=== PATIENT | female | born 1955 | race African-American/Black ===

== ENCOUNTER 2024-11-29 20:26 | Inpatient (IN) | payer OTHER, SELFPAY ==
[2024-11-29 22:43] VITALS: BMI 37.9
[2024-11-30 02:03] VITALS: BP 122/69; PULSE 87; RESP 18; TEMP 36.3; O2SAT 99
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
[2024-11-30 08:00] VITALS: BP 132/62; PULSE 94; RESP 16; O2SAT 98
[2024-11-30 08:41] LABS: Neut%MD 78.1 %; Neutrophils Absolute Auto 10.4 x10*3/uL (2.0-8.3); WBCANC 13.3 X10*3/uL
--- NOTE | 2024-11-30 08:45 | HO.PS.ADMBH ---
HPI Chief Complaint: schizophrenia Diagnostics Vital Signs (24Hr): Vital Signs - 24 hr 11/30/24 02:03 Temperature 97.3 F Pulse Rate 87 Respiratory Rate 18 Blood Pressure 122/69 Pulse Oximetry 99 Oxygen Delivery Method Room Air BMI result Body Mass Index 37.9 Labs 11/30/24 08:36 Labs: Laboratory Results - last 48 hr 11/30/24 08:36 Absolute Neuts (auto) 10.4 H Meds/Allergies Meds Home Medications ?Medication ?Instructions ?Recorded ?Confirmed ?Type aspirin 81 mg tablet,delayed 81 mg PO DAILY 11/29/24 11/29/24 History release atorvastatin 40 mg tablet 40 mg PO DAILY 11/29/24 11/29/24 History clozapine 100 mg tablet 200 mg PO BEDTIME 11/29/24 11/29/24 History divalproex 500 mg tablet,delayed 500 mg PO BEDTIME 11/29/24 11/29/24 History release fluticasone 250 mcg-salmeterol 50 1 ea inhalation BID 11/29/24 11/29/24 History mcg/dose blistr powdr for inhalation (Kecia Inhbrennan) fluticasone propionate 50 50 spray intranasal BID 11/29/24 11/29/24 History mcg/actuation nasal spray,suspension loratadine 10 mg tablet 10 mg PO DAILY 11/29/24 11/29/24 History metformin 1,000 mg tablet 1,000 mg PO BID 11/29/24 11/29/24 History risperidone 2 mg tablet 2 mg PO BID 11/29/24 11/29/24 History topiramate 100 mg tablet 100 mg PO BID 11/29/24 11/29/24 History Allergies Allergies Allergy/AdvReac Type Severity Reaction Status Date / Time grass pollen AdvReac Runny Nose Verified 11/29/24 23:13 lactose AdvReac Diarrhea Uncoded 11/29/24 22:26 Assessment & Plan Certification I certify that partial hospital treatment is medically necessary due to the symptoms and problems resulting from the patient's mental illness and the failure to treat the patient at the partial hospital level of care would likely result in the patient requiring inpatient psychiatric care which could not be prevented at a less intensive level of care. Time Spent With Patient Time: Total time managing care of this patient today ____ minutes.
--- NOTE | 2024-11-30 08:46 | P.HPPS_ITS ---
HPI Date of Service: 11/30/24 Chief Complaint: schizophrenia Sources of Information: patient interviewed, chart reviewed and crisis/core team assessment reviewed HPI Subjective Notes: Salazar Warning and Conditional Voluntary Narrative: Ms. Sanchez is a 69 year-old woman with hx of schizophrenia who initially called 911 reporting SOB. She was noted to be guarded and vague about physical concerns. Pt presented as combative, spitting at staff, refusing medical intervention. She presented tachycardiac. EKG showed normal sinus rhythm, Qtc 449.CBC with leukocytosis, metabolic acidosis. Covid/RSV/Flu negative. TSH 0.04, Free T4 2.16. BUN 20, Cr. 1.11, creatinine clearance 46. Unremarkable chest XR/CT abdomen. Negative d-dimer. She was found to be in starvation ketoacidosis. She reported she had stopped medications because she thought she was being poisoned by her psychiatrist. She had last filled her prescriptions, including clozaril back in 07/2024. She last saw her psychiatrist last 02/2024. Ms. Wilson was seen by psychiatrist while at [facility] and restarted on clozaril, currently back at 200mg po qhs. On the unit, pt reports she had been thinking that her psychiatrist at [facility] was trying to poisoned her and she stopped seeing her and taking medications. She reports she was hearing voices. She is somewhat guarded but appears improved condition. She denies SI/HI. She provides limited information about her psychiatric history including past psychiatric hospitalizations. She reports she feels better with the medication as she feels calmer and is now in agreement to continue medication. She denies any pain. She reports her sleep is good. She denies any changes in appetite. She asks this show card writer to contact her son to let him know she is here in the hospital. Past Psychiatric History: INpt: unknow. pt vague about this OP: was seeing Dr. Neal at [facility] but has not seen them. She does have ACCS services, [facility]. Past medication trials: clozaril, depakote Denies hx of suicide attempts Medical Evaluation Reviewed: Yes Diagnostics Vital Signs (24Hr): Vital Signs - 24 hr 11/30/24 02:03 Temperature 97.3 F Pulse Rate 87 Respiratory Rate 18 Blood Pressure 122/69 Pulse Oximetry 99 Oxygen Delivery Method Room Air BMI result Body Mass Index 37.9 Labs 06/10/25 08:36 Labs: Laboratory Results - last 48 hr 11/30/24 08:36 Absolute Neuts (auto) 10.4 H Meds/Allergies Meds Home Medications ?Medication ?Instructions ?Recorded ?Confirmed ?Type aspirin 81 mg tablet,delayed 81 mg PO DAILY 11/29/24 11/29/24 History release atorvastatin 40 mg tablet 40 mg PO DAILY 11/29/24 11/29/24 History clozapine 100 mg tablet 200 mg PO BEDTIME 11/29/24 11/29/24 History divalproex 500 mg tablet,delayed 500 mg PO BEDTIME 11/29/24 11/29/24 History release fluticasone 250 mcg-salmeterol 50 1 ea inhalation BID 11/29/24 11/29/24 History mcg/dose blistr powdr for inhalation (Wixela Inhub) fluticasone propionate 50 50 spray intranasal BID 11/29/24 11/29/24 History mcg/actuation nasal spray,suspension loratadine 10 mg tablet 10 mg PO DAILY 11/29/24 11/29/24 History metformin 1,000 mg tablet 1,000 mg PO BID 11/29/24 11/29/24 History risperidone 2 mg tablet 2 mg PO BID 11/29/24 11/29/24 History topiramate 100 mg tablet 100 mg PO BID 11/29/24 11/29/24 History Allergies Allergies Allergy/AdvReac Type Severity Reaction Status Date / Time grass pollen AdvReac Runny Nose Verified 11/29/24 23:13 lactose AdvReac Diarrhea Uncoded 11/29/24 22:26 Mental Status Exam Mental Status Exam Narrative: Appearance: MO, wearing hospital gown, fair hygiene, in NAD Behavior: cooperative, poor historian Psychomotor: some retardation noted Speech: clear, some delayed in response, spontaneous TP: some thought blocking TC: feeling better with medications Mood: good Affect: constricted SI: denies HI: denies VH/AH: appears internally preoccupied but less Delusions: no overt delusional content, suspect residual paranoid Insight/judgment: impaired x 2. Memory/cog: alert, oriented x 3. Assessment & Plan Assessment & Plan (1) Schizophrenia: Status: Acute Code(s): F20.9 - Schizophrenia, unspecified Plan Ms. Sanchez is a 69 year-old woman with hx of schizophrenia who initially went to [facility] after she called 911 reporting SOB. While at [facility], pt presented as guarded, paranoid, spitting at RN, refusing medical care. She presented with paranoid delusions thinking psychiatrist was trying to poison her. She was found to be in starvation ketoacidosis, thyroid nodule, low TSH, but normal free T4. She had stopped clozaril since July or longer than that. She was restarted on clozaril at [facility] and is back at 200mg po qhs. She is also on depakote. She presents less paranoid than described, she is in agreement to continue psychotropic medications. PLAN 1. Admit to , CV, 15 minutes checks 2. continue current medications 3. obtain collateral information- son Issac ([phone]) 4. Aftercare planning. Patient educated on: diagnosis and medication risk/benefits Reason for continued inpatient stay Substantial Risk for: inability to function Statement Statement: I have reviewed the history and physical and performed a pertinent examination on my patient. No changes have occurred unless specified. If the History and Physical was not performed prior to admission, the Hospitalist's service will be consulted for completing the admission physical. Time Spent With Patient Time: Total time managing care of this patient today ____ minutes.
[2024-11-30 08:50] LABS: Estimated Average Glucose 134 mg/dL; Hemoglobin A1C 133.2643 umol/L; Hemoglobin A1c % 6.3 % (<6.0)
[2024-11-30 09:03] LABS: Alanine Aminotransferase 7 U/L (0-31); Albumin Level 3.5 g/dL (3.5-5.0); Alkaline Phosphatase 63 U/L (39-117); Anion Gap 14 (12-20); Aspartate Amino Transferase 21 U/L (5-31); Bilirubin Total 0.2 mg/dL (0.0-1.0); Blood Urea Nitrogen 32 mg/dL (9-16); Calcium 9.3 mg/dL (8.4-10.2); Carbon Dioxide 21 mmol/L (22-29); Chloride 106 mmol/L (96-108); Cholesterol 145 mg/dL (<200); Creatinine Clr Calc Pharmacy 45.2; Estimated Glomerular Filt Rate 34; Glucose Random 202 mg/dL (60-115); HDL Cholesterol 27 mg/dL (>40); LDL Cholesterol Calculated 86 mg/dL (<100); Potassium 4.8 mmol/L (3.3-5.1); Sodium 136 mmol/L (135-145); Triglycerides 164 mg/dL (<150)
[2024-11-30] MEDS: Fluticasone/Vilanterol 200/25 BLST.W.DEV 1 PUFF INHALE (09:03)
[2024-11-30] MEDS: metFORMIN HCl 1,000 MG TABLET 1000 MG PO ×2 (09:04→21:16)
[2024-11-30] MEDS: Aspirin Enteric Coated 81 MG TABLET.DR PO (09:04)
[2024-11-30] MEDS: risperiDONE 2 MG TABLET PO ×2 (09:04→21:16)
[2024-11-30] MEDS: Fluticasone Propionate Nasal 16 GM SPRAY 50 SPRAY NOSTRIL-B ×2 (09:04→21:16)
[2024-11-30] MEDS: Topiramate 100 MG TABLET PO ×2 (09:04→21:16)
[2024-11-30] MEDS: Loratadine 10 MG TABLET PO (09:04)
[2024-11-30 09:18] LABS: Thyroid Stimulating Hormone 5.29 uIU/mL (0.32-4.0)
[2024-11-30 09:52] LABS: Folate 12.9 ng/mL (> or = 4.0); Vitamin B12 465 pg/mL (200-900)
--- NOTE | 2024-11-30 11:27 | HO.PM.IMCN ---
History of Present Illness Data of Consult Service Date: 11/30/24 Primary Care Provider: Unknown Physician HPI Reason for consult: Medical consult 69-year-old female with a past medical history of schizophrenia, hypertension hyperlipidemia and type 2 diabetes was brought by EMS after she activated her own medical alert for shortness of breath. On arrival to the ED it was discovered that she stopped taking her medications she was noted to have metabolic acidosis/hypo magnesemia/and starvation ketosis. There were concerns of her living in an unkempt home and failure to thrive. In the hospital she was seen by endocrinology with several scans outlined and plan. She was followed by Psychiatry who restarted her schizophrenia medication which was up titrated gradually. She had an elevated white count positive beta hydroxybutyrate, and anion gap metabolic acidosis and abnormal thyroid functions on presentation Her chest x-ray was negative her CT abdomen were nonacute, no growth in her blood cultures. She received fluid boluses due to orthostatic hypotension which is resolved, treated for candidal skin rash. She was started on metoprolol 12.5 mg daily but this will be changed to lisinopril due to her type 2 diabetes with stage 3B chronic kidney disease. She was also noted to have some adrenal nodules which will need outpatient follow-up. She was stabilized in sent here for further management of her decompensated schizophrenia. Review of Systems Review of Systems: Denies any shortness of breath, chest pain, dizziness, lightheadedness, abdominal pain or discomfort, nausea vomiting or diarrhea PMFSH Social History Household Members: None Housing: Apartment Do you presently have visiting nurse or other home services: Yes Patient Tobacco Use Status: Current everyday Tobacco user Tobacco use type: Cigarette Cigarettes Per Day: 7 Years Smoked: Since 16 yrs old Smoked in Last 30 Days: Yes e-Cigarette/Vaping Use: Never Used Patient Interested in Nicotine Replacement: No Patient Given Instructions on How to Stop Smoking: Yes Date Education Initiated: 11/29/24 Second Hand Smoke Exposure: No Currently Displaying Signs/Symptoms of Drug Intoxication Withdrawal: No Have you been hit, kicked, punched, or otherwise hurt by someone within the past year? If so, by whom?: No Do you feel safe in your current relationship?: Yes Is there a partner from a previous relationship who is making you feel unsafe now?: No Are you made to feel afraid or neglected: No ( I hav a lot of anxiety ) [employer] Practices: l love to read the Bible Advance Directives: No Advance Directives Information Provided: No Do you have thoughts of harming others: None Do you have a plan to hurt others: No Plan Recently lost weight without trying: Yes How much weight loss: 24-33 pounds Eating poorly because of decreased appetite: No Nutrition screen score: 5 Nutrition Risks: Dental problems Patient : No : No Poor oral hygiene: No Meds Allergies Allergy/AdvReac Type Severity Reaction Status Date / Time grass pollen AdvReac Runny Nose Verified 11/29/24 23:13 lactose AdvReac Diarrhea Uncoded 11/29/24 22:26 Active Medications: Current Medications Acetaminophen (Acetaminophen 325 Mg Tablet) 650 mg PO Q6H PRN PRN Reason: Headache/Pain, Scale 1-10 Al Hydroxide/Mg Hydroxide (Magnesium Hydrox/Alum Hydrox 30 Ml Oral.Susp) 30 ml PO Q6H PRN PRN Reason: Heartburn/Nausea Aspirin (Aspirin Enteric Coated 81 Mg Tablet.) 81 mg PO DAILY [facility] Last Admin: 11/30/24 09:04 Dose: 81 mg Atorvastatin Calcium (Atorvastatin Calcium 40 Mg Tablet) 40 mg PO BEDTIME [facility] Divalproex Sodium (Divalproex Sodium 500 Mg Tablet.) 500 mg PO BEDTIME [facility] Fluticasone Propionate (Fluticasone Propionate Nasal 16 Gm Edcouch) 50 spray NOSTRIL-B BID [facility] Last Admin: 11/30/24 09:04 Dose: 50 spray Fluticasone/Vilanterol (Fluticasone/Vilanterol 200/25 Blst.W.Dev) 1 puff INHALE DAILY [facility] Last Admin: 11/30/24 09:03 Dose: 1 puff Hydroxyzine HCl (Hydroxyzine Hcl 25 Mg Tablet) 25 mg PO Q6H PRN PRN Reason: mild anxiety Loratadine (Loratadine 10 Mg Tablet) 10 mg PO DAILY [facility] Last Admin: 11/30/24 09:04 Dose: 10 mg Magnesium Hydroxide (Milk Of Magnesia 30 Ml Oral.Susp) 30 ml PO DAILY PRN PRN Reason: Constipation Metformin HCl (Metformin Hcl 1,000 Mg Tablet) 1,000 mg PO BID [facility] Last Admin: 11/30/24 09:04 Dose: 1,000 mg Olanzapine (Olanzapine 5 Mg Tablet) 5 mg PO Q4H PRN PRN Reason: agitation Risperidone (Risperidone 2 Mg Tablet) 2 mg PO BID [facility] Last Admin: 11/30/24 09:04 Dose: 2 mg Topiramate (Topiramate 100 Mg Tablet) 100 mg PO BID [facility] Last Admin: 11/30/24 09:04 Dose: 100 mg Trazodone HCl (Trazodone Hcl 50 Mg Tablet) 50 mg PO BEDTIME MRX1 PRN PRN Reason: Insomnia Home Medications ?Medication ?Instructions ?Recorded ?Confirmed ?Last Taken ?Type aspirin 81 mg tablet,delayed 81 mg PO DAILY 11/29/24 11/29/24 Unknown History release atorvastatin 40 mg tablet 40 mg PO DAILY 11/29/24 11/29/24 Unknown History clozapine 100 mg tablet 200 mg PO BEDTIME 11/29/24 11/29/24 Unknown History divalproex 500 mg tablet,delayed 500 mg PO BEDTIME 11/29/24 11/29/24 Unknown History release fluticasone 250 mcg-salmeterol 50 1 ea inhalation BID 11/29/24 11/29/24 Unknown History mcg/dose blistr powdr for inhalation (Kecia Padilla) fluticasone propionate 50 50 spray intranasal BID 11/29/24 11/29/24 Unknown History mcg/actuation nasal spray,suspension loratadine 10 mg tablet 10 mg PO DAILY 11/29/24 11/29/24 Unknown History metformin 1,000 mg tablet 1,000 mg PO BID 11/29/24 11/29/24 Unknown History risperidone 2 mg tablet 2 mg PO BID 11/29/24 11/29/24 Unknown History topiramate 100 mg tablet 100 mg PO BID 11/29/24 11/29/24 Unknown History Physical Exam Vital Signs and Narrative: Vital Signs: Last Vital Signs Temp 97.3 F 11/30/24 02:03 Pulse 94 11/30/24 08:00 Resp 16 11/30/24 08:00 BP 132/62 11/30/24 08:00 Pulse Ox 98 11/30/24 08:00 O2 Del Method Room Air 11/30/24 08:00 BMI result Body Mass Index 37.9 Alert and oriented X3, answers questions appropriately Neuro: CN II-X11 intact, no deficits, visual acuity intact EYES: PERRLA, EOM intact ENT: Hearing intact, lips moist Cardiac: S1 S2 RRR, No ectopy Pulmonary: lungs clear to auscultation, No increased WOB. Abdominal: BS active in all 4 quadrants, no guarding or tenderness MSK: Strength 5/5 upper and lower extremities : Deferred Extremities: No edema in lower extremities, lymphedema, hyperpigmentation of bilateral lower extremities Psych: mood stable, Quiet and cooperative. Skin: Warm and dry, Intact Results Labs 11/30/24 08:36 Labs: Laboratory Results - last 24 hr 11/30/24 08:36 Absolute Neuts (auto) 10.4 H Anion Gap 14 Estim Creat Clear Calc 45.2 Estimated GFR 34 Random Glucose 202 H Estimat Average Glucose 134 Hemoglobin A1c % 6.3 H Calcium 9.3 Total Bilirubin 0.2 AST 21 ALT 7 Alkaline Phosphatase 63 Total Protein 7.0 Albumin 3.5 Triglycerides 164 H Cholesterol 145 LDL Cholesterol, Calc 86 HDL Cholesterol 27 L Vitamin B12 465 Folate 12.9 TSH 5.29 H Assessment and Plan (1) Type 2 diabetes mellitus with stage 3b chronic kidney disease: Status: Acute (2) HTN (hypertension): Status: Acute Plan 61-year-old female with past medical history of schizophrenia, hypertension, hyperlipidemia and type 2 diabetes was brought in by EMS for activating her medical alert for shortness of breath. On presentation to the hospital she was on cooperative with the exam and spitting at staff. Concerns for failure to thrive. Patient noted to live alone and unkempt home. Patient was noted to have metabolic derangements, hypomagnesemia, starvation ketoacidosis, labs improve with treatment. She was not found to have any infection. Patient is admitted for continued care on the [place] psych unit. Schizophrenia-Decompensated Prior to admission patient stopped taking medications due to paranoia Treatment per psychiatric team. Thyroid nodule/Hyperthyroidism/? Thyrotoxicosis Patient with a history of subclinical hyperthyroidism since March 2024 She was recently seen by endocrinology at [facility]. Recommendations include subclinical order and adrenal nodules consistent toxicosis, likely due to toxic thyroid nodule, patient has had subclinical hyperthyroidism since March 2024, this admission she had an elevated free T4 which improved during hospital stay. Thyroid uptake scan was negative however this was done with normal TSH which is likely why nodules did not show increased. TRaB Antibody negative, TSI negative. 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 Adrenal nodules Patient noted to have bilateral adrenal nodules, we will need a nonemergent CT adrenal mass protocol or MRI as outpatient Follow up outpatient Thank you for allowing me to participate in the care of this patient. Will continue to follow. Please reconsult of any acute complaints or issues arise
--- NOTE | 2024-11-30 13:46 | MHC.CLN ---
CONSULT PT REPORTED WT LOSS NO PREVIOUS WT HX AVAILABLE CURRENT WT 240# IBW 135#=/-10% PT IS 178% IBW INDICATES OBESE FOR HT REGULAR DIET PT WITH VERY LOW NUTRITION RISK MONITOR PO INTAKE
[2024-11-30 20:00] VITALS: BP 148/65; PULSE 81; RESP 18; TEMP 36.4; O2SAT 98
[2024-11-30] MEDS: Atorvastatin Calcium 40 MG TABLET PO (21:15)
[2024-11-30] MEDS: cloZAPine 100 MG TABLET 200 MG PO (21:15)
[2024-11-30] MEDS: Ammonium Lactate 12 % Cream 140 GM TUBE 1 APPL TOPICAL (21:15)
[2024-11-30] MEDS: Divalproex Sodium 500 MG TABLET.DR PO (21:16)
[2024-12-01 06:41] LABS: Glucose, Whole Blood 97 mg/dL (60-115)
[2024-12-01 08:00] VITALS: BP 138/72; PULSE 99; TEMP 36.3; O2SAT 100
[2024-12-01] MEDS: metFORMIN HCl 1,000 MG TABLET 1000 MG PO ×2 (08:14→20:23)
[2024-12-01] MEDS: Aspirin Enteric Coated 81 MG TABLET.DR PO (08:14)
[2024-12-01 08:15] VITALS: BP 138/72
[2024-12-01] MEDS: lisinopriL 2.5 MG TABLET PO (08:15)
[2024-12-01] MEDS: risperiDONE 2 MG TABLET PO ×2 (08:15→20:23)
[2024-12-01] MEDS: Topiramate 100 MG TABLET PO ×2 (08:15→20:22)
[2024-12-01] MEDS: Loratadine 10 MG TABLET PO (08:15)
[2024-12-01] MEDS: Fluticasone Propionate Nasal 16 GM SPRAY 50 SPRAY NOSTRIL-B ×2 (08:28→20:27)
[2024-12-01] MEDS: Fluticasone/Vilanterol 200/25 BLST.W.DEV 1 PUFF INHALE (08:29)
[2024-12-01] MEDS: Ammonium Lactate 12 % Cream 140 GM TUBE 1 APPL TOPICAL ×2 (08:30→20:27)
[2024-12-01 20:00] VITALS: BP 119/57; PULSE 99; RESP 16; TEMP 36.2; O2SAT 99
[2024-12-01] MEDS: Atorvastatin Calcium 40 MG TABLET PO (20:23)
[2024-12-01] MEDS: cloZAPine 100 MG TABLET 200 MG PO (20:23)
[2024-12-01] MEDS: Divalproex Sodium 500 MG TABLET.DR PO (20:23)
--- NOTE | 2024-12-01 20:56 | P.PNPSI_ITS ---
Subjective Subjective Date of Service: 12/01/24 Reason For Visit: schizophrenia Subjective Notes: Conditional Voluntary Interim History: Pt slept through the night. She reports she feels calmer. She denies SI/HI. She is very poor historian, guarded, but not overly. No aggression. She reports she is in agreement to continue medications and reports she feels less paranoid about her psychiatrist. Reports medications are helping. Review of Systems Review of Systems No SOB, no constipation Mental Status Exam Mental Status Exam Narrative: Appearance: MO, wearing hospital gown, fair hygiene, in NAD Behavior: cooperative, poor historian Psychomotor: some retardation noted Speech: clear, some delayed in response, spontaneous TP: some thought blocking TC: feeling better with medications Mood: good Affect: constricted SI: denies HI: denies VH/AH: appears internally preoccupied but less Delusions: no overt delusional content, suspect residual paranoid Insight/judgment: impaired x 2. Memory/cog: alert, oriented x 3. Diagnostics Vital Signs (24Hr): Vital Signs - 24 hr 12/01/24 08:00 12/01/24 08:15 12/01/24 20:00 Temperature 97.3 F 97.2 F Pulse Rate 99 99 Respiratory Rate 16 Blood Pressure 138/72 138/72 119/57 L Pulse Oximetry 100 99 Oxygen Delivery Method Room Air Room Air BMI result Body Mass Index 37.9 Labs 11/30/24 08:36 Labs: Laboratory Results - last 48 hr 11/30/24 12/01/24 08:36 05:52 Absolute Neuts (auto) 10.4 H Sodium 136 Potassium 4.8 Chloride 106 Carbon Dioxide 21 L Anion Gap 14 BUN 32 H Creatinine 1.52 H Estim Creat Clear Calc 45.2 Estimated GFR 34 POC Glucose 97 Random Glucose 202 H Estimat Average Glucose 134 Hemoglobin A1c % 6.3 H Calcium 9.3 Total Bilirubin 0.2 AST 21 ALT 7 Alkaline Phosphatase 63 Total Protein 7.0 Albumin 3.5 Triglycerides 164 H Cholesterol 145 LDL Cholesterol, Calc 86 HDL Cholesterol 27 L Vitamin B12 465 Folate 12.9 TSH 5.29 H Medications Medications Current Medications Acetaminophen (Acetaminophen 325 Mg Tablet) 650 mg PO Q6H PRN PRN Reason: Headache/Pain, Scale 1-10 Al Hydroxide/Mg Hydroxide (Magnesium Hydrox/Alum Hydrox 30 Ml Oral.Susp) 30 ml PO Q6H PRN PRN Reason: Heartburn/Nausea Aspirin (Aspirin Enteric Coated 81 Mg Tablet.) 81 mg PO DAILY [facility] Last Admin: 12/01/24 08:14 Dose: 81 mg Atorvastatin Calcium (Atorvastatin Calcium 40 Mg Tablet) 40 mg PO BEDTIME [facility] Last Admin: 12/01/24 20:23 Dose: 40 mg Clozapine (Clozapine 100 Mg Tablet) 200 mg PO BEDTIME [facility] Last Admin: 12/01/24 20:23 Dose: 200 mg Divalproex Sodium (Divalproex Sodium 500 Mg Tablet.) 500 mg PO BEDTIME [facility] Last Admin: 12/01/24 20:23 Dose: 500 mg Fluticasone Propionate (Fluticasone Propionate Nasal 16 Gm [place]) 50 spray NOSTRIL-B BID [facility] Last Admin: 12/01/24 20:27 Dose: 50 spray Fluticasone/Vilanterol (Fluticasone/Vilanterol 200/25 Blst.W.Dev) 1 puff INHALE DAILY [facility] Last Admin: 12/01/24 08:29 Dose: 1 puff Hydroxyzine HCl (Hydroxyzine Hcl 25 Mg Tablet) 25 mg PO Q6H PRN PRN Reason: mild anxiety Lactic Acid (Ammonium Lactate 12 % Cream 140 Gm Tube) 1 appl TOPICAL BID [facility]; Protocol Last Admin: 12/01/24 20:27 Dose: 1 appl Lisinopril (Lisinopril 2.5 Mg Tablet) 2.5 mg PO DAILY [facility]; Protocol Last Admin: 12/01/24 08:15 Dose: 2.5 mg Loratadine (Loratadine 10 Mg Tablet) 10 mg PO DAILY [facility] Last Admin: 12/01/24 08:15 Dose: 10 mg Magnesium Hydroxide (Milk Of Magnesia 30 Ml Oral.Susp) 30 ml PO DAILY PRN PRN Reason: Constipation Metformin HCl (Metformin Hcl 1,000 Mg Tablet) 1,000 mg PO BID [facility] Last Admin: 12/01/24 20:23 Dose: 1,000 mg Olanzapine (Olanzapine 5 Mg Tablet) 5 mg PO Q4H PRN PRN Reason: agitation Risperidone (Risperidone 2 Mg Tablet) 2 mg PO BID [facility] Last Admin: 12/01/24 20:23 Dose: 2 mg Topiramate (Topiramate 100 Mg Tablet) 100 mg PO BID [facility] Last Admin: 12/01/24 20:22 Dose: 100 mg Trazodone HCl (Trazodone Hcl 50 Mg Tablet) 50 mg PO BEDTIME MRX1 PRN PRN Reason: Insomnia Allergies Allergies Allergy/AdvReac Type Severity Reaction Status Date / Time grass pollen AdvReac Runny Nose Verified 11/29/24 23:13 lactose AdvReac Diarrhea Uncoded 11/29/24 22:26 Assessment & Plan Assessment & Plan (1) Schizophrenia: Status: Acute Code(s): F20.9 - Schizophrenia, unspecified (2) Type 2 diabetes mellitus with stage 3b chronic kidney disease: Status: Acute Code(s): E11.22 - Type 2 diabetes mellitus with diabetic chronic kidney disease; N18.32 - Chronic kidney disease, stage 3b (3) HTN (hypertension): Status: Acute Code(s): I10 - Essential (primary) hypertension Plan Ms. Sanchez is a 69 year-old woman with hx of schizophrenia who initially went to [facility] after she called 911 reporting SOB. While at [facility], pt presented as guarded, paranoid, spitting at RN, refusing medical care. She presented with paranoid delusions thinking psychiatrist was trying to poison her. She was found to be in starvation ketoacidosis, thyroid nodule, low TSH, but normal free T4. She had stopped clozaril since July or longer than that. She was restarted on clozaril at [facility] and is back at 200mg po qhs. She is also on depakote. She presents less paranoid than described, she is in agreement to continue psychotropic medications. PLAN 12/01 continue tx. called son Issac at ([phone]) currently at work and was not able to speak with law writer will attempt to call tomorrow or later. Reason for continued inpatient stay Substantial Risk for: inability to function Time Spent With Patient Time: Total time managing care of this patient today ____ minutes.
--- NOTE | 2024-12-02 07:46 | HO.PSYCHPN ---
Subjective Subjective Date of Service: 12/02/24 Reason For Visit: schizophrenia Subjective Notes: Conditional Voluntary Interim History: Pt slept through the night. She reports right shoulder pain and bilat lower edema. She denies SI/HI. She reports she wants support from [facility]. She continues to report that she is less paranoid about psychiatrist and continues to say that she is in agreement with taking medications now. She asks about discharge, this technical writer explained that we are planning meeting with OP providers and family and then plan for d/c. Pt was in agreement with this. Review of Systems Review of Systems No SOB, no constipation Mental Status Exam Mental Status Exam Narrative: Appearance: MO, wearing hospital gown, fair hygiene, in NAD Behavior: cooperative, poor historian Psychomotor: some retardation noted Speech: clear, some delayed in response, spontaneous TP: some thought blocking TC: feeling better with medications Mood: good Affect: constricted SI: denies HI: denies VH/AH: appears internally preoccupied but less Delusions: no overt delusional content, suspect residual paranoid Insight/judgment: impaired x 2. Memory/cog: alert, oriented x 3. Diagnostics Vital Signs (24Hr): Vital Signs - 24 hr 12/01/24 08:00 12/01/24 08:15 12/01/24 20:00 Temperature 97.3 F 97.2 F Pulse Rate 99 99 Respiratory Rate 16 Blood Pressure 138/72 138/72 119/57 L Pulse Oximetry 100 99 Oxygen Delivery Method Room Air Room Air BMI result Body Mass Index 37.9 Labs 11/30/24 08:36 Labs: Laboratory Results - last 48 hr 11/30/24 12/01/24 08:36 05:52 Absolute Neuts (auto) 10.4 H Sodium 136 Potassium 4.8 Chloride 106 Carbon Dioxide 21 L Anion Gap 14 BUN 32 H Creatinine 1.52 H Estim Creat Clear Calc 45.2 Estimated GFR 34 POC Glucose 97 Random Glucose 202 H Estimat Average Glucose 134 Hemoglobin A1c % 6.3 H Calcium 9.3 Total Bilirubin 0.2 AST 21 ALT 7 Alkaline Phosphatase 63 Total Protein 7.0 Albumin 3.5 Triglycerides 164 H Cholesterol 145 LDL Cholesterol, Calc 86 HDL Cholesterol 27 L Vitamin B12 465 Folate 12.9 TSH 5.29 H Medications Medications Current Medications Acetaminophen (Acetaminophen 325 Mg Tablet) 650 mg PO Q6H PRN PRN Reason: Headache/Pain, Scale 1-10 Al Hydroxide/Mg Hydroxide (Magnesium Hydrox/Alum Hydrox 30 Ml Oral.Susp) 30 ml PO Q6H PRN PRN Reason: Heartburn/Nausea Aspirin (Aspirin Enteric Coated 81 Mg Tablet.) 81 mg PO DAILY [facility] Last Admin: 12/01/24 08:14 Dose: 81 mg Atorvastatin Calcium (Atorvastatin Calcium 40 Mg Tablet) 40 mg PO BEDTIME [facility] Last Admin: 12/01/24 20:23 Dose: 40 mg Clozapine (Clozapine 100 Mg Tablet) 200 mg PO BEDTIME [facility] Last Admin: 12/01/24 20:23 Dose: 200 mg Divalproex Sodium (Divalproex Sodium 500 Mg Tablet.) 500 mg PO BEDTIME [facility] Last Admin: 12/01/24 20:23 Dose: 500 mg Fluticasone Propionate (Fluticasone Propionate Nasal 16 Gm [place]) 50 spray NOSTRIL-B BID [facility] Last Admin: 12/01/24 20:27 Dose: 50 spray Fluticasone/Vilanterol (Fluticasone/Vilanterol 200/25 Blst.W.Dev) 1 puff INHALE DAILY [facility] Last Admin: 12/01/24 08:29 Dose: 1 puff Hydroxyzine HCl (Hydroxyzine Hcl 25 Mg Tablet) 25 mg PO Q6H PRN PRN Reason: mild anxiety Lactic Acid (Ammonium Lactate 12 % Cream 140 Gm Tube) 1 appl TOPICAL BID [facility]; Protocol Last Admin: 12/01/24 20:27 Dose: 1 appl Lisinopril (Lisinopril 2.5 Mg Tablet) 2.5 mg PO DAILY [facility]; Protocol Last Admin: 12/01/24 08:15 Dose: 2.5 mg Loratadine (Loratadine 10 Mg Tablet) 10 mg PO DAILY [facility] Last Admin: 12/01/24 08:15 Dose: 10 mg Magnesium Hydroxide (Milk Of Magnesia 30 Ml Oral.Susp) 30 ml PO DAILY PRN PRN Reason: Constipation Metformin HCl (Metformin Hcl 1,000 Mg Tablet) 1,000 mg PO BID [facility] Last Admin: 12/01/24 20:23 Dose: 1,000 mg Olanzapine (Olanzapine 5 Mg Tablet) 5 mg PO Q4H PRN PRN Reason: agitation Risperidone (Risperidone 2 Mg Tablet) 2 mg PO BID [facility] Last Admin: 12/01/24 20:23 Dose: 2 mg Topiramate (Topiramate 100 Mg Tablet) 100 mg PO BID [facility] Last Admin: 12/01/24 20:22 Dose: 100 mg Trazodone HCl (Trazodone Hcl 50 Mg Tablet) 50 mg PO BEDTIME MRX1 PRN PRN Reason: Insomnia Allergies Allergies Allergy/AdvReac Type Severity Reaction Status Date / Time grass pollen AdvReac Runny Nose Verified 11/29/24 23:13 lactose AdvReac Diarrhea Uncoded 11/29/24 22:26 Assessment & Plan Assessment & Plan (1) Schizophrenia: Status: Acute Code(s): F20.9 - Schizophrenia, unspecified (2) Type 2 diabetes mellitus with stage 3b chronic kidney disease: Status: Acute Code(s): E11.22 - Type 2 diabetes mellitus with diabetic chronic kidney disease; N18.32 - Chronic kidney disease, stage 3b (3) HTN (hypertension): Status: Acute Code(s): I10 - Essential (primary) hypertension Plan Ms. Sanchez is a 69 year-old woman with hx of schizophrenia who initially went to [facility] after she called 911 reporting SOB. While at [facility], pt presented as guarded, paranoid, spitting at RN, refusing medical care. She presented with paranoid delusions thinking psychiatrist was trying to poison her. She was found to be in starvation ketoacidosis, thyroid nodule, low TSH, but normal free T4. She had stopped clozaril since July or longer than that. She was restarted on clozaril at [facility] and is back at 200mg po qhs. She is also on depakote. She presents less paranoid than described, she is in agreement to continue psychotropic medications. PLAN 12/01 continue tx. called son Issac sims ([phone]) currently at work and was not able to speak with technical writer will attempt to call tomorrow or later. 12/02 continue tx. ordered consult to hospitalist for bilat edema, right shoulder pain. will check clozaril level. Reason for continued inpatient stay Substantial Risk for: inability to function Time Spent With Patient Time: Total time managing care of this patient today ____ minutes.
[2024-12-02 08:00] VITALS: BP 94/54; PULSE 100; RESP 16; TEMP 36.1; O2SAT 100
[2024-12-02] MEDS: metFORMIN HCl 1,000 MG TABLET 1000 MG PO ×2 (08:24→20:43)
[2024-12-02] MEDS: Aspirin Enteric Coated 81 MG TABLET.DR PO (08:24)
[2024-12-02 08:25] VITALS: BP 94/54
[2024-12-02] MEDS: Loratadine 10 MG TABLET PO (08:25)
[2024-12-02] MEDS: Topiramate 100 MG TABLET PO ×2 (08:25→20:43)
[2024-12-02] MEDS: risperiDONE 2 MG TABLET PO ×2 (08:25→20:43)
[2024-12-02] MEDS: Fluticasone Propionate Nasal 16 GM SPRAY 50 SPRAY NOSTRIL-B ×2 (08:26→21:25)
[2024-12-02] MEDS: Fluticasone/Vilanterol 200/25 BLST.W.DEV 1 PUFF INHALE (08:26)
[2024-12-02] MEDS: Ammonium Lactate 12 % Cream 140 GM TUBE 1 APPL TOPICAL ×2 (08:26→21:25)
--- NOTE | 2024-12-02 15:24 | P.PNIM_ITS ---
Subjective Subjective Date of Service: 12/02/24 Interval History: 69-year-old female with a past medical history of schizophrenia, hypertension hyperlipidemia and type 2 diabetes was brought by EMS after she activated her own medical alert for shortness of breath. On arrival to the ED it was discovered that she stopped taking her medications she was noted to have metabolic acidosis/hypo magnesemia/and starvation ketosis. There were concerns of her living in an unkempt home and failure to thrive. She is admitted on [facility] for further care of her decompensated schizophrenia. She is seen today for reports of left shoulder pain in bilateral leg edema. She denies any recent injury, describes the pain is chronic. She has full range of motion of her shoulder and her lower legs. She denies any recent injury or falls. No crepitus noted on exam. Bilateral lower legs are edematous and discolored. Nursing is applying Lac-Hydrin cream. Review of Systems Denies any shortness of breath, chest pain, dizziness, lightheadedness, abdominal pain or discomfort, nausea vomiting or diarrhea Physical Exam 2 Vital Signs: Vital Signs: Last Vital Signs Temp 96.9 F 12/02/24 08:00 Pulse 100 12/02/24 08:00 Resp 16 12/02/24 08:00 BP 94/54 L 12/02/24 08:25 Pulse Ox 100 12/02/24 08:00 O2 Del Method Room Air 12/02/24 08:00 BMI result Body Mass Index 37.9 Alert and oriented X3, answers questions appropriately Neuro: CN II-X11 intact Cardiac: S1 S2 RRR, No ectopy Pulmonary: lungs clear to auscultation, No increased WOB. Abdominal: BS active in all 4 quadrants, no guarding or tenderness MSK: Strength 5/5 upper and lower extremities, No crepitus to LUE. Full ROM. : Deferred Extremities: No pitting edema in lower extremities, + lymphedema, hyperpigmentation of bilateral lower extremities Psych: mood stable, Quiet and cooperative. Skin: Warm and dry, Intact Objective Data Active Medications Acetaminophen (Acetaminophen 325 Mg Tablet) 650 mg PO Q6H PRN PRN Reason: Headache/Pain, Scale 1-10 Al Hydroxide/Mg Hydroxide (Magnesium Hydrox/Alum Hydrox 30 Ml Oral.Susp) 30 ml PO Q6H PRN PRN Reason: Heartburn/Nausea Aspirin (Aspirin Enteric Coated 81 Mg Tablet.) 81 mg PO DAILY [facility] Last Admin: 12/02/24 08:24 Dose: 81 mg Documented By: JEFF Atorvastatin Calcium (Atorvastatin Calcium 40 Mg Tablet) 40 mg PO BEDTIME [facility] Last Admin: 12/01/24 20:23 Dose: 40 mg Documented By: RAMON Clozapine (Clozapine 100 Mg Tablet) 200 mg PO BEDTIME [facility] Last Admin: 12/01/24 20:23 Dose: 200 mg Documented By: RAMON Divalproex Sodium (Divalproex Sodium 500 Mg Tablet.) 500 mg PO BEDTIME [facility] Last Admin: 12/01/24 20:23 Dose: 500 mg Documented By: RAMON Fluticasone Propionate (Fluticasone Propionate Nasal 16 Gm [place]) 50 spray NOSTRIL-B BID [facility] Last Admin: 12/02/24 08:26 Dose: 50 spray Documented By: JEFF Fluticasone/Vilanterol (Fluticasone/Vilanterol 200/25 Blst.W.Dev) 1 puff INHALE DAILY [facility] Last Admin: 12/02/24 08:26 Dose: 1 puff Documented By: JEFF Hydroxyzine HCl (Hydroxyzine Hcl 25 Mg Tablet) 25 mg PO Q6H PRN PRN Reason: mild anxiety Lactic Acid (Ammonium Lactate 12 % Cream 140 Gm Tube) 1 appl TOPICAL BID [facility]; Protocol Last Admin: 12/02/24 08:26 Dose: 1 appl Documented By: JEFF Lisinopril (Lisinopril 2.5 Mg Tablet) 2.5 mg PO DAILY [facility]; Protocol Last Admin: 12/02/24 08:25 Dose: Not Given Documented By: JEFF Non-Admin Reason: Decreased Blood Pressure Loratadine (Loratadine 10 Mg Tablet) 10 mg PO DAILY [facility] Last Admin: 12/02/24 08:25 Dose: 10 mg Documented By: JEFF Magnesium Hydroxide (Milk Of Magnesia 30 Ml Oral.Susp) 30 ml PO DAILY PRN PRN Reason: Constipation Metformin HCl (Metformin Hcl 1,000 Mg Tablet) 1,000 mg PO BID [facility] Last Admin: 12/02/24 08:24 Dose: 1,000 mg Documented By: JEFF Olanzapine (Olanzapine 5 Mg Tablet) 5 mg PO Q4H PRN PRN Reason: agitation Risperidone (Risperidone 2 Mg Tablet) 2 mg PO BID [facility] Last Admin: 12/02/24 08:25 Dose: 2 mg Documented By: JEFF Topiramate (Topiramate 100 Mg Tablet) 100 mg PO BID [facility] Last Admin: 12/02/24 08:25 Dose: 100 mg Documented By: JEFF Trazodone HCl (Trazodone Hcl 50 Mg Tablet) 50 mg PO BEDTIME MRX1 PRN PRN Reason: Insomnia Labs 11/30/24 08:36 Assessment and Plan (1) Lymphedema: Status: Acute Plan 61-year-old female with past medical history of schizophrenia, hypertension, hyperlipidemia and type 2 diabetes was brought in by EMS for activating her medical alert for shortness of breath. On presentation to the hospital she was on cooperative with the exam and spitting at staff. Concerns for failure to thrive. Patient noted to live alone and unkempt home. Patient was noted to have metabolic derangements, hypomagnesemia, starvation ketoacidosis, labs improve with treatment. She was not found to have any infection. Patient is admitted for continued care on the [place] psych unit. Patient is seen today for left shoulder pain and Lymphedema. Schizophrenia-Decompensated Prior to admission patient stopped taking medications due to paranoia Treatment per psychiatric team. Left shoulder pain No indication for imaging as she denies any injury and has full ROM Schedule Tylenol for 3 days Bilateral lower leg lymphedema Continue Lachydrin BID Elevate legs. Thyroid nodule/Hyperthyroidism/? Thyrotoxicosis Patient with a history of subclinical hyperthyroidism since March 2024 She was recently seen by endocrinology at [facility]. Recommendations include subclinical order and adrenal nodules consistent toxicosis, likely due to toxic thyroid nodule, patient has had subclinical hyperthyroidism since March 2024, this admission she had an elevated free T4 which improved during hospital stay. Thyroid uptake scan was negative however this was done with normal TSH which is likely why nodules did not show increased. TRaB Antibody negative, TSI negative. 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 Adrenal nodules Patient noted to have bilateral adrenal nodules, we will need a nonemergent CT adrenal mass protocol or MRI as outpatient Follow up outpatient Will continue to follow as needed Quality Stroke Does the patient have a stroke diagnosis?: No VTE Prior VTE?: No VTE Risk Level:: Medical - low VTE Device Contraindication: Treatment Not Indicated VTE Drug Contraindication: Treatment Not Indicated
[2024-12-02 20:00] VITALS: BP 112/61; PULSE 91; RESP 18; TEMP 36.4; O2SAT 100
[2024-12-02] MEDS: Divalproex Sodium 500 MG TABLET.DR PO (20:43)
[2024-12-02] MEDS: cloZAPine 100 MG TABLET 200 MG PO (20:43)
[2024-12-02] MEDS: Atorvastatin Calcium 40 MG TABLET PO (20:43)
[2024-12-02] MEDS: Acetaminophen 325 MG TABLET 650 MG PO (20:48)
[2024-12-03 08:00] VITALS: BP 127/59; PULSE 100; RESP 16; TEMP 36.2; O2SAT 100
[2024-12-03] MEDS: Acetaminophen 325 MG TABLET 650 MG PO ×3 (09:28→20:44)
[2024-12-03] MEDS: metFORMIN HCl 1,000 MG TABLET 1000 MG PO ×2 (09:29→20:44)
[2024-12-03] MEDS: Topiramate 100 MG TABLET PO ×2 (09:29→20:44)
[2024-12-03] MEDS: Aspirin Enteric Coated 81 MG TABLET.DR PO (09:29)
[2024-12-03] MEDS: Loratadine 10 MG TABLET PO (09:29)
[2024-12-03] MEDS: lisinopriL 2.5 MG TABLET PO (09:30)
[2024-12-03] MEDS: Fluticasone/Vilanterol 200/25 BLST.W.DEV 1 PUFF INHALE (09:30)
[2024-12-03] MEDS: risperiDONE 2 MG TABLET PO ×2 (09:30→20:44)
[2024-12-03] MEDS: Fluticasone Propionate Nasal 16 GM SPRAY 50 SPRAY NOSTRIL-B (09:30)
[2024-12-03 20:00] VITALS: BP 109/58; PULSE 75; RESP 16; TEMP 36.6; O2SAT 97
[2024-12-03] MEDS: Divalproex Sodium 500 MG TABLET.DR PO (20:44)
[2024-12-03] MEDS: cloZAPine 100 MG TABLET 200 MG PO (20:44)
[2024-12-03] MEDS: Atorvastatin Calcium 40 MG TABLET PO (20:44)
[2024-12-03] MEDS: Fluticasone Propionate Nasal 16 GM SPRAY 1 SPRAY NOSTRIL-B (21:46)
[2024-12-04 08:00] VITALS: BP 144/65; PULSE 100; RESP 16; TEMP 36.4; O2SAT 100
[2024-12-04] MEDS: Fluticasone Propionate Nasal 16 GM SPRAY 1 SPRAY NOSTRIL-B ×2 (08:16→20:31)
[2024-12-04] MEDS: Fluticasone/Vilanterol 200/25 BLST.W.DEV 1 PUFF INHALE (08:16)
[2024-12-04] MEDS: Acetaminophen 325 MG TABLET 650 MG PO ×3 (08:18→20:30)
[2024-12-04] MEDS: Aspirin Enteric Coated 81 MG TABLET.DR PO (08:18)
[2024-12-04] MEDS: Topiramate 100 MG TABLET PO ×2 (08:18→20:30)
[2024-12-04 08:19] VITALS: BP 144/65
[2024-12-04] MEDS: metFORMIN HCl 1,000 MG TABLET 1000 MG PO ×2 (08:19→20:30)
[2024-12-04] MEDS: lisinopriL 2.5 MG TABLET PO (08:19)
[2024-12-04] MEDS: Loratadine 10 MG TABLET PO (08:19)
[2024-12-04] MEDS: risperiDONE 2 MG TABLET PO ×2 (08:19→20:31)
[2024-12-04] MEDS: Ammonium Lactate 12 % Cream 140 GM TUBE 1 APPL TOPICAL (10:22)
[2024-12-04] MEDS: Fluticasone Propionate Nasal 16 GM SPRAY 50 SPRAY NOSTRIL-B ×2 (10:28→10:35)
[2024-12-04 20:00] VITALS: BP 139/79; PULSE 103; RESP 16; TEMP 36.6; O2SAT 98
[2024-12-04] MEDS: Divalproex Sodium 500 MG TABLET.DR PO (20:30)
[2024-12-04] MEDS: cloZAPine 100 MG TABLET 200 MG PO (20:30)
[2024-12-04] MEDS: Atorvastatin Calcium 40 MG TABLET PO (20:31)
--- NOTE | 2024-12-04 23:32 | P.PNPSI_ITS ---
Subjective Subjective Date of Service: 12/04/24 Reason For Visit: schizophrenia Interim History: Met with patient; discussed with team Patient pleasant on approach. To nursing she reported anxiety and depression but to this auto service writer she says I am okay.... I am not depressed.. I do not have anxiety... Mental Status Exam Mental Status Exam Narrative: Appearance: MO, wearing hospital gown, lying in bed; fair hygiene, in NAD Behavior: cooperative, poor historian Psychomotor: retardation noted Speech: clear, some delayed in response, spontaneous TP: some thought blocking TC: Not discussed Mood: I am okay Affect: constricted SI: denies HI: denies VH/AH: appears internally preoccupied but less Delusions: no overt delusional content, suspect residual paranoid Insight/judgment: impaired x 2. Memory/cog: alert, oriented x 3. Diagnostics Vital Signs (24Hr): Vital Signs - 24 hr 12/04/24 08:00 12/04/24 08:19 12/04/24 20:00 Temperature 97.5 F 97.9 F Pulse Rate 100 103 H Respiratory Rate 16 16 Blood Pressure 144/65 H 144/65 H 139/79 Pulse Oximetry 100 98 Oxygen Delivery Method Room Air Room Air BMI result Body Mass Index 37.9 Labs 11/30/24 08:36 Medications Medications Current Medications Acetaminophen (Acetaminophen 325 Mg Tablet) 650 mg PO TID [facility] Stop: 12/05/24 20:59 Last Admin: 12/04/24 20:30 Dose: 650 mg Al Hydroxide/Mg Hydroxide (Magnesium Hydrox/Alum Hydrox 30 Ml Oral.Susp) 30 ml PO Q6H PRN PRN Reason: Heartburn/Nausea Aspirin (Aspirin Enteric Coated 81 Mg Tablet.) 81 mg PO DAILY [facility] Last Admin: 12/04/24 08:18 Dose: 81 mg Atorvastatin Calcium (Atorvastatin Calcium 40 Mg Tablet) 40 mg PO BEDTIME [facility] Last Admin: 12/04/24 20:31 Dose: 40 mg Clozapine (Clozapine 100 Mg Tablet) 200 mg PO BEDTIME [facility] Last Admin: 12/04/24 20:30 Dose: 200 mg Divalproex Sodium (Divalproex Sodium 500 Mg Tablet.) 500 mg PO BEDTIME [facility] Last Admin: 12/04/24 20:30 Dose: 500 mg Fluticasone Propionate (Fluticasone Propionate Nasal 16 Gm [place]) 1 spray NOSTRIL-B BID [facility] Last Admin: 12/04/24 20:31 Dose: 1 spray Fluticasone/Vilanterol (Fluticasone/Vilanterol 200/25 Blst.W.Dev) 1 puff INHALE DAILY [facility] Last Admin: 12/04/24 08:16 Dose: 1 puff Hydroxyzine HCl (Hydroxyzine Hcl 25 Mg Tablet) 25 mg PO Q6H PRN PRN Reason: mild anxiety Lactic Acid (Ammonium Lactate 12 % Cream 140 Gm Tube) 1 appl TOPICAL BID [facility]; Protocol Last Admin: 12/04/24 20:56 Dose: Not Given Lisinopril (Lisinopril 2.5 Mg Tablet) 2.5 mg PO DAILY [facility]; Protocol Last Admin: 12/04/24 08:19 Dose: 2.5 mg Loratadine (Loratadine 10 Mg Tablet) 10 mg PO DAILY [facility] Last Admin: 12/04/24 08:19 Dose: 10 mg Magnesium Hydroxide (Milk Of Magnesia 30 Ml Oral.Susp) 30 ml PO DAILY PRN PRN Reason: Constipation Metformin HCl (Metformin Hcl 1,000 Mg Tablet) 1,000 mg PO BID [facility] Last Admin: 12/04/24 20:30 Dose: 1,000 mg Olanzapine (Olanzapine 5 Mg Tablet) 5 mg PO Q4H PRN PRN Reason: agitation Risperidone (Risperidone 2 Mg Tablet) 2 mg PO BID [facility] Last Admin: 12/04/24 20:31 Dose: 2 mg Topiramate (Topiramate 100 Mg Tablet) 100 mg PO BID [facility] Last Admin: 12/04/24 20:30 Dose: 100 mg Trazodone HCl (Trazodone Hcl 50 Mg Tablet) 50 mg PO BEDTIME MRX1 PRN PRN Reason: Insomnia Allergies Allergies Allergy/AdvReac Type Severity Reaction Status Date / Time grass pollen AdvReac Runny Nose Verified 11/29/24 23:13 lactose AdvReac Diarrhea Uncoded 11/29/24 22:26 Assessment & Plan Assessment & Plan (1) Lymphedema: Status: Acute Code(s): I89.0 - Lymphedema, not elsewhere classified (2) Schizophrenia: Status: Acute Code(s): F20.9 - Schizophrenia, unspecified Plan 61-year-old female with past medical history of schizophrenia, hypertension, hyperlipidemia and type 2 diabetes was brought in by EMS for activating her medical alert for shortness of breath. On presentation to the hospital she was on cooperative with the exam and spitting at staff. Concerns for failure to thrive. Patient noted to live alone and unkempt home. Patient was noted to have metabolic derangements, hypomagnesemia, starvation ketoacidosis, labs improve with treatment. She was not found to have any infection. Patient is admitted for continued care on the [place] psych unit. Patient is seen today for left shoulder pain and Lymphedema. Schizophrenia-Decompensated Prior to admission patient stopped taking medications due to paranoia Treatment per psychiatric team. Left shoulder pain No indication for imaging as she denies any injury and has full ROM Schedule Tylenol for 3 days Bilateral lower leg lymphedema Continue Lachydrin BID Elevate legs. Thyroid nodule/Hyperthyroidism/? Thyrotoxicosis Patient with a history of subclinical hyperthyroidism since March 2024 She was recently seen by endocrinology at [facility]. Recommendations include subclinical order and adrenal nodules consistent toxicosis, likely due to toxic thyroid nodule, patient has had subclinical hyperthyroidism since March 2024, this admission she had an elevated free T4 which improved during hospital stay. Thyroid uptake scan was negative however this was done with normal TSH which is likely why nodules did not show increased. TRaB Antibody negative, TSI negative. 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 Adrenal nodules Patient noted to have bilateral adrenal nodules, we will need a nonemergent CT adrenal mass protocol or MRI as outpatient Follow up outpatient Will continue to follow as needed Patient educated on: diagnosis Informed Consent: understands, does not understand and further education needed Reason for continued inpatient stay Substantial Risk for: inability to function Time Spent With Patient Time: Total time managing care of this patient today ____ minutes.
[2024-12-05 08:00] VITALS: BP 134/63; PULSE 87; RESP 16; TEMP 36.3; O2SAT 100
[2024-12-05] MEDS: Fluticasone/Vilanterol 200/25 BLST.W.DEV 1 PUFF INHALE (08:14)
[2024-12-05] MEDS: Topiramate 100 MG TABLET PO ×2 (08:15→20:37)
[2024-12-05] MEDS: risperiDONE 2 MG TABLET PO ×2 (08:15→20:36)
[2024-12-05] MEDS: Ammonium Lactate 12 % Cream 140 GM TUBE 1 APPL TOPICAL ×2 (08:15→20:35)
[2024-12-05] MEDS: Fluticasone Propionate Nasal 16 GM SPRAY 1 SPRAY NOSTRIL-B ×2 (08:15→20:36)
[2024-12-05] MEDS: Loratadine 10 MG TABLET PO (08:15)
[2024-12-05 08:16] VITALS: BP 134/63
[2024-12-05] MEDS: metFORMIN HCl 500 MG TABLET PO ×2 (08:16→20:36)
[2024-12-05] MEDS: lisinopriL 2.5 MG TABLET PO (08:16)
[2024-12-05] MEDS: Aspirin Enteric Coated 81 MG TABLET.DR PO (08:16)
[2024-12-05] MEDS: Acetaminophen 325 MG TABLET 650 MG PO ×2 (08:17→15:30)
[2024-12-05] MEDS: Magnesium Hydrox/Alum Hydrox 30 ML ORAL.SUSP PO (11:02)
--- NOTE | 2024-12-05 14:46 | HO.PSYCHPN ---
Subjective Subjective Date of Service: 12/05/24 Reason For Visit: schizophrenia Interim History: Met with patient; discussed with team Patient says she is doing okay. Thinks headline writer for initiating. No change in presentation. Staff reports patient taking her medications, allowing vitals, eating about 50% Mental Status Exam Mental Status Exam Narrative: Appearance: MO, wearing hospital gown, lying in bed; fair hygiene, in NAD Behavior: cooperative, poor historian Psychomotor: retardation noted Speech: clear, some delayed in response, spontaneous TP: some thought blocking TC: Not discussed Mood: Euthymic Affect: constricted SI: denies HI: denies VH/AH: appears internally preoccupied but less Delusions: no overt delusional content, suspect residual paranoid Insight/judgment: impaired x 2. Memory/cog: alert, oriented x 3. Diagnostics Vital Signs (24Hr): Vital Signs - 24 hr 12/04/24 20:00 12/05/24 08:00 12/05/24 08:16 Temperature 97.9 F 97.3 F Pulse Rate 103 H 87 Respiratory Rate 16 16 Blood Pressure 139/79 134/63 134/63 Pulse Oximetry 98 100 Oxygen Delivery Method Room Air Room Air BMI result Body Mass Index 37.9 Labs 11/30/24 08:36 Medications Medications Current Medications Acetaminophen (Acetaminophen 325 Mg Tablet) 650 mg PO TID [facility] Stop: 12/05/24 20:59 Last Admin: 12/05/24 08:17 Dose: 650 mg Al Hydroxide/Mg Hydroxide (Magnesium Hydrox/Alum Hydrox 30 Ml Oral.Susp) 30 ml PO Q6H PRN PRN Reason: Heartburn/Nausea Last Admin: 12/05/24 11:02 Dose: 30 ml Aspirin (Aspirin Enteric Coated 81 Mg Tablet.) 81 mg PO DAILY [facility] Last Admin: 12/05/24 08:16 Dose: 81 mg Atorvastatin Calcium (Atorvastatin Calcium 40 Mg Tablet) 40 mg PO BEDTIME [facility] Last Admin: 12/04/24 20:31 Dose: 40 mg Clozapine (Clozapine 100 Mg Tablet) 200 mg PO BEDTIME [facility] Last Admin: 12/04/24 20:30 Dose: 200 mg Divalproex Sodium (Divalproex Sodium 500 Mg Tablet.) 500 mg PO BEDTIME [facility] Last Admin: 12/04/24 20:30 Dose: 500 mg Fluticasone Propionate (Fluticasone Propionate Nasal 16 Gm [place]) 1 spray NOSTRIL-B BID [facility] Last Admin: 12/05/24 08:15 Dose: 1 spray Fluticasone/Vilanterol (Fluticasone/Vilanterol 200/25 Blst.W.Dev) 1 puff INHALE DAILY [facility] Last Admin: 12/05/24 08:14 Dose: 1 puff Hydroxyzine HCl (Hydroxyzine Hcl 25 Mg Tablet) 25 mg PO Q6H PRN PRN Reason: mild anxiety Lactic Acid (Ammonium Lactate 12 % Cream 140 Gm Tube) 1 appl TOPICAL BID [facility]; Protocol Last Admin: 12/05/24 08:15 Dose: 1 appl Lisinopril (Lisinopril 2.5 Mg Tablet) 2.5 mg PO DAILY [facility]; Protocol Last Admin: 12/05/24 08:16 Dose: 2.5 mg Loratadine (Loratadine 10 Mg Tablet) 10 mg PO DAILY [facility] Last Admin: 12/05/24 08:15 Dose: 10 mg Magnesium Hydroxide (Milk Of Magnesia 30 Ml Oral.Susp) 30 ml PO DAILY PRN PRN Reason: Constipation Metformin HCl (Metformin Hcl 500 Mg Tablet) 500 mg PO BID [facility] Last Admin: 12/05/24 08:16 Dose: 500 mg Olanzapine (Olanzapine 5 Mg Tablet) 5 mg PO Q4H PRN PRN Reason: agitation Risperidone (Risperidone 2 Mg Tablet) 2 mg PO BID [facility] Last Admin: 12/05/24 08:15 Dose: 2 mg Topiramate (Topiramate 100 Mg Tablet) 100 mg PO BID [facility] Last Admin: 12/05/24 08:15 Dose: 100 mg Trazodone HCl (Trazodone Hcl 50 Mg Tablet) 50 mg PO BEDTIME MRX1 PRN PRN Reason: Insomnia Allergies Allergies Allergy/AdvReac Type Severity Reaction Status Date / Time grass pollen AdvReac Runny Nose Verified 11/29/24 23:13 lactose AdvReac Diarrhea Uncoded 11/29/24 22:26 Assessment & Plan Assessment & Plan (1) Lymphedema: Status: Acute Code(s): I89.0 - Lymphedema, not elsewhere classified (2) Schizophrenia: Status: Acute Code(s): F20.9 - Schizophrenia, unspecified Plan 61-year-old female with past medical history of schizophrenia, hypertension, hyperlipidemia and type 2 diabetes was brought in by EMS for activating her medical alert for shortness of breath. On presentation to the hospital she was on cooperative with the exam and spitting at staff. Concerns for failure to thrive. Patient noted to live alone and unkempt home. Patient was noted to have metabolic derangements, hypomagnesemia, starvation ketoacidosis, labs improve with treatment. She was not found to have any infection. Patient is admitted for continued care on the [place] psych unit. Patient is seen today for left shoulder pain and Lymphedema. Schizophrenia-Decompensated Prior to admission patient stopped taking medications due to paranoia Treatment per psychiatric team. Left shoulder pain No indication for imaging as she denies any injury and has full ROM Schedule Tylenol for 3 days Bilateral lower leg lymphedema Continue Lachydrin BID Elevate legs. Thyroid nodule/Hyperthyroidism/? Thyrotoxicosis Patient with a history of subclinical hyperthyroidism since March 2024 She was recently seen by endocrinology at [facility]. Recommendations include subclinical order and adrenal nodules consistent toxicosis, likely due to toxic thyroid nodule, patient has had subclinical hyperthyroidism since March 2024, this admission she had an elevated free T4 which improved during hospital stay. Thyroid uptake scan was negative however this was done with normal TSH which is likely why nodules did not show increased. TRaB Antibody negative, TSI negative. 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 Adrenal nodules Patient noted to have bilateral adrenal nodules, we will need a nonemergent CT adrenal mass protocol or MRI as outpatient Follow up outpatient Will continue to follow as needed Reason for continued inpatient stay Substantial Risk for: inability to function Time Spent With Patient Time: Total time managing care of this patient today ____ minutes.
[2024-12-05 20:00] VITALS: BP 166/72; PULSE 82; RESP 16; TEMP 36.3; O2SAT 100
[2024-12-05] MEDS: cloZAPine 100 MG TABLET 200 MG PO (20:36)
[2024-12-05] MEDS: Atorvastatin Calcium 40 MG TABLET PO (20:36)
[2024-12-05] MEDS: Divalproex Sodium 500 MG TABLET.DR PO (20:36)
[2024-12-06 08:00] VITALS: BP 136/64; PULSE 79; RESP 16; TEMP 36.2; O2SAT 100
[2024-12-06] MEDS: Aspirin Enteric Coated 81 MG TABLET.DR PO (08:50)
[2024-12-06] MEDS: risperiDONE 2 MG TABLET PO ×2 (08:50→20:49)
[2024-12-06] MEDS: metFORMIN HCl 500 MG TABLET PO ×2 (08:50→20:49)
[2024-12-06] MEDS: Topiramate 100 MG TABLET PO ×2 (08:50→20:49)
[2024-12-06] MEDS: Loratadine 10 MG TABLET PO (08:50)
[2024-12-06] MEDS: lisinopriL 2.5 MG TABLET PO (08:51)
--- NOTE | 2024-12-06 08:51 | HO.PSYCHPN ---
Subjective Subjective Date of Service: 12/06/24 Reason For Visit: schizophrenia Subjective Notes: Conditional Voluntary Interim History: Pt sleeping and eating well. She presents as calmer, less suspicious. She reports she feels safe returning back home. No SI/HI. No overt delusional content reported but suspect some residual. However, pt appears in much improved condition than described when she was at [facility]. She has been visible on the unit. She was able to complete MOCA today- scored 11/30 with impairments in executive function, language repetition/fluency, attention, recall, orientation. ACL 4.4 moderate cognitive impairment. Mental Status Exam Mental Status Exam Narrative: Appearance: MO, wearing hospital gown, lying in bed; fair hygiene, in NAD Behavior: cooperative, poor historian Psychomotor: retardation noted Speech: clear, some delayed in response, spontaneous TP: some thought blocking TC: Not discussed Mood: Euthymic Affect: constricted SI: denies HI: denies VH/AH: appears internally preoccupied but less Delusions: no overt delusional content, suspect residual paranoid Insight/judgment: impaired x 2. Memory/cog: alert, oriented x 3. MOCA on 12/06/2024- scored 11/30 with impairments in executive function, language repetition/fluency, attention, recall, orientation. ACL 4.4 moderate cognitive impairment. Diagnostics Vital Signs (24Hr): Vital Signs - 24 hr 12/05/24 20:00 12/06/24 08:00 Temperature 97.3 F 97.2 F Pulse Rate 82 79 Respiratory Rate 16 16 Blood Pressure 166/72 H 136/64 Pulse Oximetry 100 100 Oxygen Delivery Method Room Air Room Air BMI result Body Mass Index 37.9 Labs 11/30/24 08:36 Medications Medications Current Medications Al Hydroxide/Mg Hydroxide (Magnesium Hydrox/Alum Hydrox 30 Ml Oral.Susp) 30 ml PO Q6H PRN PRN Reason: Heartburn/Nausea Last Admin: 12/05/24 11:02 Dose: 30 ml Aspirin (Aspirin Enteric Coated 81 Mg Tablet.) 81 mg PO DAILY [facility] Last Admin: 12/05/24 08:16 Dose: 81 mg Atorvastatin Calcium (Atorvastatin Calcium 40 Mg Tablet) 40 mg PO BEDTIME [facility] Last Admin: 12/05/24 20:36 Dose: 40 mg Clozapine (Clozapine 100 Mg Tablet) 200 mg PO BEDTIME [facility] Last Admin: 12/05/24 20:36 Dose: 200 mg Divalproex Sodium (Divalproex Sodium 500 Mg Tablet.Dr) 500 mg PO BEDTIME [facility] Last Admin: 12/05/24 20:36 Dose: 500 mg Fluticasone Propionate (Fluticasone Propionate Nasal 16 Gm [place]) 1 spray NOSTRIL-B BID [facility] Last Admin: 12/05/24 20:36 Dose: 1 spray Fluticasone/Vilanterol (Fluticasone/Vilanterol 200/25 Blst.W.Dev) 1 puff INHALE DAILY [facility] Last Admin: 12/05/24 08:14 Dose: 1 puff Hydroxyzine HCl (Hydroxyzine Hcl 25 Mg Tablet) 25 mg PO Q6H PRN PRN Reason: mild anxiety Lactic Acid (Ammonium Lactate 12 % Cream 140 Gm Tube) 1 appl TOPICAL BID [facility]; Protocol Last Admin: 12/05/24 20:35 Dose: 1 appl Lisinopril (Lisinopril 2.5 Mg Tablet) 2.5 mg PO DAILY [facility]; Protocol Last Admin: 12/05/24 08:16 Dose: 2.5 mg Loratadine (Loratadine 10 Mg Tablet) 10 mg PO DAILY [facility] Last Admin: 12/05/24 08:15 Dose: 10 mg Magnesium Hydroxide (Milk Of Magnesia 30 Ml Oral.Susp) 30 ml PO DAILY PRN PRN Reason: Constipation Metformin HCl (Metformin Hcl 500 Mg Tablet) 500 mg PO BID [facility] Last Admin: 12/05/24 20:36 Dose: 500 mg Olanzapine (Olanzapine 5 Mg Tablet) 5 mg PO Q4H PRN PRN Reason: agitation Risperidone (Risperidone 2 Mg Tablet) 2 mg PO BID [facility] Last Admin: 12/05/24 20:36 Dose: 2 mg Topiramate (Topiramate 100 Mg Tablet) 100 mg PO BID [facility] Last Admin: 12/05/24 20:37 Dose: 100 mg Trazodone HCl (Trazodone Hcl 50 Mg Tablet) 50 mg PO BEDTIME MRX1 PRN PRN Reason: Insomnia Allergies Allergies Allergy/AdvReac Type Severity Reaction Status Date / Time grass pollen AdvReac Runny Nose Verified 11/29/24 23:13 lactose AdvReac Diarrhea Uncoded 11/29/24 22:26 Assessment & Plan Assessment & Plan (1) Schizophrenia: Status: Acute Code(s): F20.9 - Schizophrenia, unspecified (2) Type 2 diabetes mellitus with stage 3b chronic kidney disease: Status: Acute Code(s): E11.22 - Type 2 diabetes mellitus with diabetic chronic kidney disease; N18.32 - Chronic kidney disease, stage 3b (3) HTN (hypertension): Status: Acute Code(s): I10 - Essential (primary) hypertension Plan Ms. Sanchez is a 69 year-old woman with hx of schizophrenia who initially went to [facility] after she called 911 reporting SOB. While at [facility], pt presented as guarded, paranoid, spitting at RN, refusing medical care. She presented with paranoid delusions thinking psychiatrist was trying to poison her. She was found to be in starvation ketoacidosis, thyroid nodule, low TSH, but normal free T4. She had stopped clozaril since July or longer than that. She was restarted on clozaril at [facility] and is back at 200mg po qhs. She is also on depakote. She presents less paranoid than described, she is in agreement to continue psychotropic medications. PLAN 12/01 continue tx. called son Issac sims ([phone]) currently at work and was not able to speak with story writer will attempt to call tomorrow or later. 12/02 continue tx. ordered consult to hospitalist for bilat edema, right shoulder pain. will check clozaril level. 12/06/2024---> continue tx. will order clozaril levels as well as depakote level. pt appears less paranoid. Reason for continued inpatient stay Substantial Risk for: inability to function Time Spent With Patient Time: Total time managing care of this patient today ____ minutes.
[2024-12-06] MEDS: Fluticasone/Vilanterol 200/25 BLST.W.DEV 1 PUFF INHALE (08:53)
[2024-12-06] MEDS: Fluticasone Propionate Nasal 16 GM SPRAY 1 SPRAY NOSTRIL-B ×2 (08:53→21:17)
--- NOTE | 2024-12-06 13:29 | PC.NURSE ---
ACLS and MOCA scores: Pt scored a 4.4 on the [facility] Cognitive Level Screen indicating moderate cognitive impairment and the need for 34% cognitive assistance for safety and problem solving. Pt scored an 11/30 on the MOCA indicating Moderate cognitive impairment with deficits in all domains.
[2024-12-06 20:00] VITALS: BP 133/63; PULSE 83; TEMP 36.1; O2SAT 100
[2024-12-06] MEDS: Divalproex Sodium 500 MG TABLET.DR PO (20:49)
[2024-12-06] MEDS: Atorvastatin Calcium 40 MG TABLET PO (20:49)
[2024-12-06] MEDS: cloZAPine 100 MG TABLET 200 MG PO (20:49)
[2024-12-06] MEDS: Ammonium Lactate 12 % Cream 140 GM TUBE 1 APPL TOPICAL (21:17)
[2024-12-07 08:23] VITALS: BP 112/57; PULSE 90; RESP 18; TEMP 36.2; O2SAT 100
[2024-12-07] MEDS: Fluticasone/Vilanterol 200/25 BLST.W.DEV 1 PUFF INHALE (08:24)
[2024-12-07] MEDS: Fluticasone Propionate Nasal 16 GM SPRAY 1 SPRAY NOSTRIL-B ×2 (08:24→22:44)
[2024-12-07] MEDS: risperiDONE 2 MG TABLET PO ×2 (08:25→21:02)
[2024-12-07] MEDS: Loratadine 10 MG TABLET PO (08:25)
[2024-12-07] MEDS: metFORMIN HCl 500 MG TABLET PO ×2 (08:25→21:02)
[2024-12-07] MEDS: Aspirin Enteric Coated 81 MG TABLET.DR PO (08:26)
[2024-12-07] MEDS: Topiramate 100 MG TABLET PO ×2 (08:26→21:02)
[2024-12-07] MEDS: Ammonium Lactate 12 % Cream 140 GM TUBE 1 APPL TOPICAL ×2 (08:27→21:04)
[2024-12-07 08:39] LABS: Neut%MD 68.2 %; Neutrophils Absolute Auto 8.3 x10*3/uL (2.0-8.3); WBCANC 12.2 X10*3/uL
[2024-12-07 08:50] LABS: Creatinine Clr Calc Pharmacy 52.9; Estimated Glomerular Filt Rate 41
[2024-12-07 08:58] LABS: Valproate 36.6 mcg/mL (50.0-100.0)
--- NOTE | 2024-12-07 09:16 | HO.PSYCHPN ---
Subjective Subjective Date of Service: 12/07/24 Reason For Visit: schizophrenia Subjective Notes: Conditional Voluntary Interim History: Pt sleeping and eating well. She has been ambulating with walker. She smiles. She reports she is doing well with current medications. She denied SI/HI. When directly asked she denies VH/AH but at times still appears internally preoccupied with residual paranoid ideas. No behavioral concerns. Plan for d/c tomorrow. Medication Compliance: Yes Review of Systems Review of Systems Denies any shortness of breath, chest pain, dizziness, lightheadedness, abdominal pain or discomfort, nausea vomiting or diarrhea Mental Status Exam Mental Status Exam Narrative: Appearance: MO, wearing hospital gown, lying in bed; fair hygiene, in NAD Behavior: cooperative, poor historian Psychomotor: retardation noted Speech: clear, some delayed in response, spontaneous TP: some thought blocking TC: Not discussed Mood: Euthymic Affect: constricted SI: denies HI: denies VH/AH: appears internally preoccupied but less Delusions: no overt delusional content, suspect residual paranoid Insight/judgment: impaired x 2. Memory/cog: alert, oriented x 3. MOCA on 12/06/2024- scored 05/22 with impairments in executive function, language repetition/fluency, attention, recall, orientation. ACL 4.4 moderate cognitive impairment. Diagnostics Vital Signs (24Hr): Vital Signs - 24 hr 12/06/24 20:00 12/07/24 08:23 Temperature 97 F 97.1 F Pulse Rate 83 90 Respiratory Rate 18 Blood Pressure 133/63 112/57 L Pulse Oximetry 100 100 Oxygen Delivery Method Room Air Room Air BMI result Body Mass Index 37.9 Labs 12/07/24 07:27 Labs: Laboratory Results - last 48 hr 12/07/24 07:27 Absolute Neuts (auto) 8.3 Creatinine 1.30 Estim Creat Clear Calc 52.9 Estimated GFR 41 Valproic Acid 36.6 L Medications Medications Current Medications Al Hydroxide/Mg Hydroxide (Magnesium Hydrox/Alum Hydrox 30 Ml Oral.Susp) 30 ml PO Q6H PRN PRN Reason: Heartburn/Nausea Last Admin: 12/05/24 11:02 Dose: 30 ml Aspirin (Aspirin Enteric Coated 81 Mg Tablet.Dr) 81 mg PO DAILY ARIEL Last Admin: 12/07/24 08:26 Dose: 81 mg Atorvastatin Calcium (Atorvastatin Calcium 40 Mg Tablet) 40 mg PO BEDTIME [facility] Last Admin: 12/06/24 20:49 Dose: 40 mg Clozapine (Clozapine 100 Mg Tablet) 200 mg PO BEDTIME [facility] Last Admin: 12/06/24 20:49 Dose: 200 mg Divalproex Sodium (Divalproex Sodium 500 Mg Tablet.Dr) 500 mg PO BEDTIME [facility] Last Admin: 12/06/24 20:49 Dose: 500 mg Fluticasone Propionate (Fluticasone Propionate Nasal 16 Gm [place]) 1 spray NOSTRIL-B BID [facility] Last Admin: 12/07/24 08:24 Dose: 1 spray Fluticasone/Vilanterol (Fluticasone/Vilanterol 200/25 Blst.W.Dev) 1 puff INHALE DAILY [facility] Last Admin: 12/07/24 08:24 Dose: 1 puff Hydroxyzine HCl (Hydroxyzine Hcl 25 Mg Tablet) 25 mg PO Q6H PRN PRN Reason: mild anxiety Lactic Acid (Ammonium Lactate 12 % Cream 140 Gm Tube) 1 appl TOPICAL BID [facility]; Protocol Last Admin: 12/07/24 08:27 Dose: 1 appl Lisinopril (Lisinopril 2.5 Mg Tablet) 2.5 mg PO DAILY [facility]; Protocol Last Admin: 12/07/24 08:25 Dose: Not Given Loratadine (Loratadine 10 Mg Tablet) 10 mg PO DAILY [facility] Last Admin: 12/07/24 08:25 Dose: 10 mg Magnesium Hydroxide (Milk Of Magnesia 30 Ml Oral.Susp) 30 ml PO DAILY PRN PRN Reason: Constipation Metformin HCl (Metformin Hcl 500 Mg Tablet) 500 mg PO BID [facility] Last Admin: 12/07/24 08:25 Dose: 500 mg Olanzapine (Olanzapine 5 Mg Tablet) 5 mg PO Q4H PRN PRN Reason: agitation Risperidone (Risperidone 2 Mg Tablet) 2 mg PO BID [facility] Last Admin: 12/07/24 08:25 Dose: 2 mg Topiramate (Topiramate 100 Mg Tablet) 100 mg PO BID [facility] Last Admin: 12/07/24 08:26 Dose: 100 mg Trazodone HCl (Trazodone Hcl 50 Mg Tablet) 50 mg PO BEDTIME MRX1 PRN PRN Reason: Insomnia Allergies Allergies Allergy/AdvReac Type Severity Reaction Status Date / Time grass pollen AdvReac Runny Nose Verified 11/29/24 23:13 lactose AdvReac Diarrhea Uncoded 11/29/24 22:26 Assessment & Plan Assessment & Plan (1) Schizophrenia: Status: Acute Code(s): F20.9 - Schizophrenia, unspecified (2) Type 2 diabetes mellitus with stage 3b chronic kidney disease: Status: Acute Code(s): E11.22 - Type 2 diabetes mellitus with diabetic chronic kidney disease; N18.32 - Chronic kidney disease, stage 3b (3) HTN (hypertension): Status: Acute Code(s): I10 - Essential (primary) hypertension Plan Ms. Sanchez is a 69 year-old woman with hx of schizophrenia who initially went to [facility] after she called 911 reporting SOB. While at [facility], pt presented as guarded, paranoid, spitting at RN, refusing medical care. She presented with paranoid delusions thinking psychiatrist was trying to poison her. She was found to be in starvation ketoacidosis, thyroid nodule, low TSH, but normal free T4. She had stopped clozaril since July or longer than that. She was restarted on clozaril at [facility] and is back at 200mg po qhs. She is also on depakote. She presents less paranoid than described, she is in agreement to continue psychotropic medications. PLAN 12/01 continue tx. called son Issac at ([phone]) currently at work and was not able to speak with press writer will attempt to call tomorrow or later. 12/02 continue tx. ordered consult to hospitalist for bilat edema, right shoulder pain. will check clozaril level. 12/06/2024---> continue tx. will order clozaril levels as well as depakote level. pt appears less paranoid. 12/07 continue tx. d/c 12/08. Reason for continued inpatient stay Substantial Risk for: inability to function Time Spent With Patient Time: Total time managing care of this patient today ____ minutes.
[2024-12-07] MEDS: Sennosides/Docusate Sodium TABLET 1 TAB PO ×2 (10:05→21:02)
[2024-12-07] MEDS: Milk of Magnesia 30 ML ORAL.SUSP PO (10:05)
[2024-12-07 20:00] VITALS: BP 136/67; PULSE 81; RESP 18; TEMP 36.4; O2SAT 100
[2024-12-07] MEDS: cloZAPine 100 MG TABLET 200 MG PO (21:02)
[2024-12-07] MEDS: Divalproex Sodium 500 MG TABLET.DR PO (21:02)
[2024-12-07] MEDS: Atorvastatin Calcium 40 MG TABLET PO (21:02)
[2024-12-08 08:00] VITALS: BP 128/65; PULSE 99; RESP 16; TEMP 36.7; O2SAT 100
[2024-12-08 08:35] VITALS: BP 128/65
[2024-12-08] MEDS: metFORMIN HCl 500 MG TABLET PO (08:35)
[2024-12-08] MEDS: Loratadine 10 MG TABLET PO (08:35)
[2024-12-08] MEDS: lisinopriL 2.5 MG TABLET PO (08:35)
[2024-12-08] MEDS: risperiDONE 2 MG TABLET PO (08:35)
[2024-12-08] MEDS: Sennosides/Docusate Sodium TABLET 1 TAB PO (08:35)
[2024-12-08] MEDS: Topiramate 100 MG TABLET PO (08:35)
[2024-12-08] MEDS: Fluticasone/Vilanterol 200/25 BLST.W.DEV 1 PUFF INHALE (08:36)
[2024-12-08] MEDS: Ammonium Lactate 12 % Cream 140 GM TUBE 1 APPL TOPICAL (08:39)
[2024-12-08] MEDS: Aspirin Enteric Coated 81 MG TABLET.DR PO (08:45)
--- NOTE | 2024-12-08 10:59 | P.DS_ITS ---
DS: Providers Provider Date of Service: 12/08/24 Date of admission: 11/29/24 20:26 Date of discharge: 12/08/24 Primary care physician: Unknown Physician Consults: 11/29/24 22:56 Consult to Hospitalist Routine Comment: Consulting Provider: [facility] Hospitalists Reason For Exam: medical h&P 12/02/24 13:46 Consult to Hospitalist Routine Comment: Consulting Provider: [facility] Hospitalists Reason For Exam: bilat LE/ right shoulder pain Discharging clinician: Vy Montaño DS: Diagnosis Discharge Diagnosis (1) Schizophrenia: Status: Acute (2) Type 2 diabetes mellitus with stage 3b chronic kidney disease: Status: Acute (3) HTN (hypertension): Status: Acute DS: Medications Discharge Medications Home Medications: Previous Rx's ?Medication ?Instructions ?Recorded ammonium lactate 12 % topical cream 1 appl topical BID #140 grams 12/08/24 aspirin 81 mg tablet,delayed 81 mg PO DAILY #30 tabs 0 12/08/24 release atorvastatin 40 mg tablet 40 mg PO BEDTIME #30 tabs clozapine 200 mg tablet 200 mg PO BEDTIME #30 tabs 0 12/08/24 divalproex 500 mg tablet,delayed 500 mg PO BEDTIME #30 tabs 12/08/24 release fluticasone furoate 200 1 inh inhalation DAILY #60 e a 12/08/24 mcg-vilanterol 25 mcg/dose inhalation powder (Breo Ellipta) fluticasone propionate 50 1 spray intranasal DAILY #16 grams 12/08/24 mcg/actuation nasal spray,suspension lisinopril 2.5 mg tablet 2.5 mg PO DAILY #30 tabs loratadine 10 mg tablet 10 mg PO DAILY #30 tabs 11/21 02/14 metformin 500 mg tablet 500 mg PO BID #60 tabs 12/08 risperidone 2 mg tablet 2 mg PO BID #60 tabs 5 sennosides 8.6 mg-docusate sodium 1 tab PO BID #60 tab s 12/08/24 50 mg tablet (Senna Plus) topiramate 100 mg tablet 100 mg PO BID #60 tabs 12/08 Mental Status Exam Mental Status Exam Narrative: Appearance: MO, wearing hospital gown, lying in bed; fair hygiene, in NAD Behavior: cooperative, poor historian Psychomotor: retardation noted Speech: clear, some delayed in response, spontaneous TP: some thought blocking TC: Not discussed Mood: Euthymic Affect: constricted SI: denies HI: denies VH/AH: appears internally preoccupied but less Delusions: no overt delusional content, suspect residual paranoid Insight/judgment: impaired x 2. Memory/cog: alert, oriented x 3. MOCA on 12/06/2024- scored 11/30 with impairments in executive function, language repetition/fluency, attention, recall, orientation. ACL 4.4 moderate cognitive impairment. Data Data Completed and Pending Completed studies during hospitalization [Text1]: 12/06/24 12/07/24 17:10 07:27 Absolute Neuts (auto) 8.3 Creatinine 1.30 Estim Creat Clear Calc 52.9 Estimated GFR 41 Valproic Acid 36.6 L Clozapine Pending Norclozapine Pending DS: Summary Hospital Course Hospital Course: Subjective Notes: [place]azar Warning and Conditional Voluntary Narrative: Ms. Sanchez is a 69 year-old woman with hx of schizophrenia who initially called 911 reporting SOB. She was noted to be guarded and vague about physical concerns. Pt presented as combative, spitting at staff, refusing medical intervention. She presented tachycardiac. EKG showed normal sinus rhythm, Qtc 449.CBC with leukocytosis, metabolic acidosis. Covid/RSV/Flu negative. TSH 0.04, Free T4 2.16. BUN 20, Cr. 1.11, creatinine clearance 46. Unremarkable chest XR/CT abdomen. Negative d-dimer. She was found to be in starvation ketoacidosis. She reported she had stopped medications because she thought she was being p oisoned by her psychiatrist. She had last filled her prescriptions, including clozaril back in 07/2024. She last saw her psychiatrist last 02/2024. Ms. Wilson was seen by psychiatrist while at [facility] and restarted on clozaril, currently back at 200mg po qhs. On the unit, pt reports she had been thinking that her psychiatrist at [facility] was trying to poisoned her and she stopped seeing her and taking medications. She reports she was hearing voices. She is somewhat guarded but appears improved condition. She denies SI/HI. She provides limited information about her psychiatric history including past psychiatric hospitalizations. She reports she feels better with the medication as she feels calmer and is now in agreement to continue medication. She denies any pain. She reports her sleep is good. She denies any changes in appetite. She asks this blog writer to contact her son to let him know she is here in the hospital. HOSPITAL COURSE Pt admitted on a CV. She presented with paranoid delusions but less agitated or combative than described while she was at [facility]. She agreed to continue medications. Her affect gradually presented as less constricted, less internally preoccupied. She denied SI/HI. She was increasingly more visible on the unit and participating in groups. She was sleeping and eating well. There were no incidences of disruptive behaviors nor need for restraints. Coordination of care was done with [facility]. Pt appeared back to baseline. She agreed to continue psychiatric care through [facility] and [facility] services. Status at Discharge Cognitive/behavioral status at discharge: Pt with brighter affect. No SI/HI. residual paranoid and auditory hallucinations but much less. sleeping and eating well. Time Spent with Patient Time attestation: Total time managing care of this patient today ___45_ minutes. Time spent: Greater than 30 minutes Discharge Plan Discharge Anticipated Discharge Date/Time: 12/08/24 10:45 Patient Disposition: Home, Self-Care Discharge Diagnosis: schizophrenia Referrals: Bag Machine Tender: Annita ([facility]) [Other] - 1 Week Referral Note: Follow up with Annita for support as needed; she will continue to check-in with you weekly Psych Prescriber:Phani Quesada([facility]) [Other] - 01/17/25 9:00 am Referral Note: Appointment is in person at the office WIRE HARNESS DESIGN ENGINEER: [facility] [Other] - 12/08/24 Referral Note: WIRE HARNESS DESIGN ENGINE[employer] services will re-start upon discharge; call the above number to follow up as needed VNA: [facility] [Other] - 12/08/24 Referral Note: Twice daily VNA services for medication management will re- start at time of discharge. Your VNA nurse to provide first visit tomorrow 12/08/24. PCP: MELANIE Ferrara ([facility]) [Other] - 1 Week [facility] [place] [Other] - 3-5 Days Referral Note: Your career education teacher Lorena Suzanna will follow up with you by phone following discharge. Please call [phone] to request your vp strategic partnerships if you have any questions or concerns. Therapy: Mariah Riley ([facility]) [Other] - 12/13/24 10:00 am Referral Note: Appointment is in person at the [facility] office Psych Bridge Appointment:Yady Donis-[facility] [Other] - 12/17/24 10:30 am Referral Note: Appointment is in person at the office on Intake: Nicole Naranjo ([employer]) [Other] - 12/14/24 10:00 am Referral Note: Appointment is in person at the office Discharge Medications: New loratadine 10 mg Tablet 10 mg PO DAILY Qty: 30 0RF fluticasone furoate-vilanterol [Breo Ellipta] 200-25 mcg/dose Blister With Device 1 inh inhalation DAILY Qty: 60 0RF atorvastatin 40 mg Tablet 40 mg PO BEDTIME Qty: 30 0RF aspirin 81 mg Tablet,Delayed Release (Dr/Ec) 81 mg PO DAILY Qty: 30 0RF lisinopril 2.5 mg Tablet 2.5 mg PO DAILY Qty: 30 0RF Protocol: Hold for SBP< HOLD for SBP < : 120 metformin 500 mg Tablet 500 mg PO BID Qty: 60 0RF sennosides-docusate sodium [Senna Plus] 8.6-50 mg Tablet 1 tab PO BID Qty: 60 0RF divalproex 500 mg Tablet,Delayed Release (Dr/Ec) 500 mg PO BEDTIME Qty: 30 0RF risperidone 2 mg Tablet 2 mg PO BID Qty: 60 0RF topiramate 100 mg Tablet 100 mg PO BID Qty: 60 0RF clozapine 200 mg tablet 200 mg PO BEDTIME Qty: 30 0RF ammonium lactate 12 % cream 1 appl topical BID Qty: 140 0RF fluticasone propionate 50 mcg/actuation spray,suspension 1 spray intranasal DAILY Qty: 16 0RF Rx Instructions: administer into each nostril Discontinued atorvastatin 40 mg tablet 40 mg PO DAILY clozapine 100 mg tablet 200 mg PO BEDTIME divalproex 500 mg tablet,delayed release (DR/EC) 500 mg PO BEDTIME aspirin 81 mg tablet,delayed release (DR/EC) 81 mg PO DAILY fluticasone propionate 50 mcg/actuation spray,suspension 50 spray intranasal BID fluticasone propion-salmeterol [Wixela Inhub] 250-50 mcg/dose blister with device 1 ea inhalation BID risperidone 2 mg tablet 2 mg PO BID metformin 1,000 mg tablet 1,000 mg PO BID topiramate 100 mg tablet 100 mg PO BID loratadine 10 mg tablet 10 mg PO DAILY Discharge Orders: Discharge Order (Routine); Ordered 12/08/24 Ordered By: Vy Montaño Diet: Diabetic diet Activity on Discharge: As tolerated Stand Alone Forms: Patient Portal Discharge page Print Language: Maltese Care Plan Goals: 1. Maintain mood 2. No SI/HI 3. Less paranoid delusions 4. No aggression towards self or others Health Concerns: Follow up with PCP for routine care Plan of Treatment: 1. take medications as prescribed. 2. Go to nearest ED or call 911 in event of emergency Assessment: Pt with darrenther, although constricted at baseline. No SI/HI. residual paranoid and auditory hallucinations but much less than before. sleeping and eating well. Discharge Date/Time: 12/08/24 11:50
[2024-12-09 12:29] LABS: Clozapine (Clozaril) 184 mcg/L; Norclozapine 66 mcg/L (25-400)
== END 2024-12-08 11:50 | disposition home or self-care (01) | DRG 885 ==
PROVIDERS: Social Worker; Admitting Provider Psychiatry & Neurology Psychiatry; Visit Provider Psychiatry & Neurology Psychiatry
DX: F20.9 Schizophrenia, unspecified (principal); I12.9 Hypertensive chronic kidney disease with stage 1 through stage 4 chronic kidney disease, or unspecified chronic kidney disease; N18.32 Chronic kidney disease, stage 3b; E11.22 Type 2 diabetes mellitus with diabetic chronic kidney disease; E03.8 Other specified hypothyroidism; M25.512 Pain in left shoulder; I89.0 Lymphedema, not elsewhere classified; E27.9 Disorder of adrenal gland, unspecified; F17.210 Nicotine dependence, cigarettes, uncomplicated; Z71.6 Tobacco abuse counseling; Z79.51 Long term (current) use of inhaled steroids; Z79.82 Long term (current) use of aspirin; Z79.84 Long term (current) use of oral hypoglycemic drugs; Z79.899 Other long term (current) drug therapy
CPT/HCPCS: 36415; 80053; 80061; 80159; 80164; 82565; 82607; 82746; 82947; 83036; 84443; 85048

== ENCOUNTER → 2024-11-29 20:26 | Outpatient (BNV) | payer OTHER, SELFPAY | PROVIDERS: Admitting Provider Psychiatry & Neurology Psychiatry; Visit Provider Social Worker | DX: F20.0 Paranoid schizophrenia (principal); I89.0 Lymphedema, not elsewhere classified | CPT/HCPCS: 90792; 99231; 99232 ==

== ENCOUNTER → 2024-11-29 20:26 | Outpatient (BNV) | payer OTHER, SELFPAY | PROVIDERS: Admitting Provider Psychiatry & Neurology Psychiatry; Visit Provider Nurse Practitioner Family | DX: E11.22 Type 2 diabetes mellitus with diabetic chronic kidney disease (principal); N18.32 Chronic kidney disease, stage 3b; I10 Essential (primary) hypertension | CPT/HCPCS: 99222; 99231 ==